=== PATIENT | male | born 1960 | race African-American/Black ===

== ENCOUNTER 2024-12-10 00:38 | Inpatient (IN) | payer MEDICAID ==
[~2024-12-10] VITALS: Ht 180.3 cm; Wt 105.9 kg
[2024-12-10 03:50] LABS: PLATELET COUNT (AUTO) 335 K/uL (150-450); RED BLOOD CELL COUNT(AUTO) 4.58 MIL/uL (4.50-5.90); RED CELL DISTRIBUTION WIDTH 15.2 % (11.5-14.5); WHITE BLOOD COUNT (AUTO) 6.5 K/uL (4.5-11.0)
[2024-12-10 04:00] LABS: CALCIUM, TOTAL 8.1 mg/dL (8.8-10.5); CREATININE 1.00 mg/dL (0.60-1.30); GLOMERULAR FILTR. RATE CALC > 60 mL/min (>60); GLUCOSE,RANDOM 206 mg/dL (70-110); SODIUM SERUM 141 mmol/L (136-145); UREA NITROGEN, BLOOD 13 mg/dL (7-18)
[2024-12-10 04:09] LABS: TROPONIN I-HIGH SENSITIVITY 52 ng/L (<76)
[2024-12-10] MEDS ORDERED: ONDANSETRON HCL 4 MG/2 ML VIAL IVP PRN (05:45)
[2024-12-10] MEDS ORDERED: ACETAMINOPHEN 325 MG TABLET PO PRN (05:45)
[2024-12-10 08:47] LABS: TROPONIN I-HIGH SENSITIVITY 48 ng/L (<76)
[2024-12-10 10:25] LABS: APPEARANCE,URINE CLEAR (CLEAR); GLUCOSE, URINE (UA) >=1000 mg/dL (NEGATIVE); LEUKOCYTE ESTERASE ,URINE MODERATE (NEGATIVE); NITRATE,URINE NEGATIVE (NEGATIVE); OCCULT BLOOD,URINE NEGATIVE (NEGATIVE); PH,URINE DRUG SCREEN 5.5 (5.0-8.0); SPECIFIC GRAVITIY, URINE 1.037 (1.003-1.030)
[2024-12-10 10:33] LABS: ALCOHOL, URINE DRUG SCREEN NEGATIVE (NEGATIVE); AMPHET/METH SCREEN,URINE POSITIVE (NEGATIVE); BARBITURATE SCREEN, URINE NEGATIVE (NEGATIVE); CANNABINOID SCREEN,URINE POSITIVE (NEGATIVE); COCAINE SCREEN,URINE POSITIVE (NEGATIVE); METHADONE SCREEN, URINE NEGATIVE (NEGATIVE)
[2024-12-10 10:46] LABS: SQUAMOUS EPITHELIAL CELL,UR Few /LPF (None Seen)
[2024-12-10 11:00] VITALS: BP 124/83; PULSE 70; RESP 18; TEMP 98; O2SAT 96
[2024-12-10 16:00] VITALS: BP 113/57; PULSE 85; RESP 16; TEMP 97.5; O2SAT 99
[2024-12-10 20:00] VITALS: BP 108/66; PULSE 91; RESP 18; TEMP 97.8; O2SAT 95
[2024-12-10] MEDS ORDERED: KETOROLAC TROMETHAMINE 15 MG/ML VIAL IVP PRN (21:00)
[2024-12-10] MEDS: CefTRIAXone 1 GM/DEXTROSE 50 ML IV SCH (21:38)
[2024-12-11] VITALS: BP 110/62; PULSE 76; RESP 17; TEMP 98.1; O2SAT 97
[2024-12-11] MEDS: ACETAMINOPHEN 500 MG TABLET PO SCH (01:03)
[2024-12-11 06:19] LABS: PLATELET COUNT (AUTO) 352 K/uL (150-450); RED BLOOD CELL COUNT(AUTO) 4.71 MIL/uL (4.50-5.90); RED CELL DISTRIBUTION WIDTH 15.1 % (11.5-14.5); WHITE BLOOD COUNT (AUTO) 5.3 K/uL (4.5-11.0)
[2024-12-11 06:44] LABS: CALCIUM, TOTAL 8.1 mg/dL (8.8-10.5); CREATININE 0.72 mg/dL (0.60-1.30); GLOMERULAR FILTR. RATE CALC > 60 mL/min (>60); GLUCOSE,RANDOM 212 mg/dL (70-110); SODIUM SERUM 138 mmol/L (136-145); UREA NITROGEN, BLOOD 12 mg/dL (7-18)
[2024-12-11 08:20] VITALS: BP 122/78; PULSE 86; RESP 18; TEMP 97.7; O2SAT 100
[2024-12-11] MEDS: HEPARIN SODIUM,PORCINE 5,000 UNITS/ML VIAL SQ SCH (09:03)
[2024-12-11 12:00] VITALS: BP 133/75; PULSE 88; RESP 18; TEMP 98.2; O2SAT 99
[2024-12-11 16:00] VITALS: BP 125/65; PULSE 74; RESP 18; TEMP 97.9; O2SAT 99
[2024-12-11 20:07] VITALS: BP 143/86; PULSE 96; RESP 18; TEMP 97.9; O2SAT 99
[2024-12-12 00:06] VITALS: BP 131/79; PULSE 87; RESP 16; TEMP 98.4; O2SAT 99
[2024-12-12 04:53] VITALS: BP 118/61; PULSE 89; RESP 16; TEMP 97.9; O2SAT 97
[2024-12-12 06:29] LABS: PLATELET COUNT (AUTO) 354 K/uL (150-450); RED BLOOD CELL COUNT(AUTO) 4.85 MIL/uL (4.50-5.90); RED CELL DISTRIBUTION WIDTH 15.1 % (11.5-14.5); WHITE BLOOD COUNT (AUTO) 5.1 K/uL (4.5-11.0)
[2024-12-12 06:50] LABS: CALCIUM, TOTAL 8.1 mg/dL (8.8-10.5); CREATININE 0.72 mg/dL (0.60-1.30); GLOMERULAR FILTR. RATE CALC > 60 mL/min (>60); GLUCOSE,RANDOM 198 mg/dL (70-110); SODIUM SERUM 137 mmol/L (136-145); UREA NITROGEN, BLOOD 9 mg/dL (7-18)
[2024-12-12 08:27] VITALS: BP 130/92; PULSE 86; RESP 18; TEMP 98.1; O2SAT 98
[2024-12-12 09:00] VITALS: BP 132/82; PULSE 89; RESP 18; TEMP 97.5; O2SAT 99
[2024-12-12] MEDS ORDERED: CEPH-558 PO (10:42)
== END 2024-12-12 17:00 | disposition home or self-care (01) | DRG 115 ==
LOC: EMS 02:18 → EDH 05:39 → 5S 10:47 → 6S 12-12 08:30
PROVIDERS: ADMIT Internal Medicine; ATTEND Internal Medicine
DX: S09.90XA Unspecified injury of head, initial encounter (principal); G92.8 Other toxic encephalopathy; N39.0 Urinary tract infection, site not specified; E11.9 Type 2 diabetes mellitus without complications; F19.10 Other psychoactive substance abuse, uncomplicated; F10.20 Alcohol dependence, uncomplicated; Y90.0 Blood alcohol level of less than 20 mg/100 ml; F14.90 Cocaine use, unspecified, uncomplicated; W18.39XA Other fall on same level, initial encounter; Y93.89 Activity, other specified; Y92.89 Other specified places as the place of occurrence of the external cause; Y99.8 Other external cause status
CPT/HCPCS: 70450; 70486; 71045; 72125; 80048; 80307; 81001; 83735; 83880; 84484; 85025; 85730; 87086; 93005; 99285; G0480; J0696; J1644; 36415-L1; 36415-TC